=== PATIENT | female | born 1980 | race Caucasian/White ===

== ENCOUNTER 2021-08-30 10:44 | Emergency (ER) | payer OTHER, MEDICAID, SELFPAY ==
[2021-08-30 10:52] VITALS: BP 123/74; PULSE 89; RESP 16; TEMP 36.6; O2SAT 100; BMI 26.6
== END 2021-08-30 13:07 | disposition left against medical advice (07) ==
PROVIDERS: Emergency Provider Emergency Medicine
DX: H92.01 Otalgia, right ear (principal)
CPT/HCPCS: 99281